=== PATIENT | male | born 1965 | race Caucasian/White ===

== ENCOUNTER 2017-07-27 12:40 | Emergency (ER) | payer SELFPAY ==
[~2017-07-27] VITALS: Ht 157.5 cm; Wt 61.5 kg
[2017-07-27 13:20] VITALS: Ht 157.5 cm; Wt 61.5 kg
== END 2017-07-27 18:18 | disposition left against medical advice (07) ==
LOC: E/R 12:40
DX: Z53.21 Procedure and treatment not carried out due to patient leaving prior to being seen by health care provider (principal)